=== PATIENT | female | born 1960 | race Caucasian/White ===

== ENCOUNTER 2018-05-23 10:58 | Inpatient (IN) | payer OTHER ==
[2018-05-23] VITALS (36 sets, daily range): BP systolic 102–206; BP diastolic 43–167
[~2018-05-23] VITALS: Ht 157.5 cm; Wt 101.6 kg
--- NOTE | ~2018-05-23 | HC ---
[facility] [place] [address] CONSULTATION Name: JENNIFER SNELL Room #: 238-P [facility] IN M.R.#: [id number] Admission: 05/23/18 Attend Phys: Marlo Reynoso MD Discharge: Date of : 56 Report #: [id number] THIS REPORT FOR: //name// CC: Marlo Reynoso REASON FOR PRESENTATION: Weakness and dizziness. HISTORY OF PRESENT ILLNESS: This is a 57-year-old who is known to have COPD per history. She is also a thyroid patient. She carries a diagnosis of hyperlipidemia and hypertension. She is diabetic, and she is not aware of any previous medical problems when it comes to her kidneys. She is a fibromyalgia patient who has not been feeling well with repeated falls in the last few days. She also had some issues with ambulation. She stated that she had some dizziness, but no syncope. No fever or chills. No upper respiratory tract infection symptoms. No headache. No GI symptoms other than mild nausea. No persistent vomiting, no diarrhea. She tells me that she was prescribed new medications for her migraines, but she is not able to elaborate more on that. On presentation to the Emergency Room, she was found to have an acute kidney injury with a creatinine of 6.4. She was also found to have a sodium of 110. She is anemic with a very low MCV at 60. Initial urine studies done yesterday revealed a urine specific gravity of 1.010, with +1 protein and red blood cells. I am being consulted to manage her acute kidney injury. PAST MEDICAL HISTORY: Numerous and includes the followin. COPD. 2. Hypothyroidism. 3. Diabetes mellitus. 4. Hypertension. 5. Fibromyalgia. 6. Hyperlipidemia. MEDICATIONS: 1. Aspirin. 2. Carvedilol. 3. Albuterol. 4. Lisinopril. 5. Pravastatin. 6. Gabapentin. 7. Victoza. 8. Insulin. 9. Metformin. 10. Lasix. SOCIAL HISTORY: She is a current everyday smoker. No drug or alcohol abuse. FAMILY HISTORY: Significant for hypertension. [facility] [address] [place] [address] CONSULTATION Name: JENNIFER SNELL Kavya Room #: 238-P [facility] IN M.R.#: [id number] Admission: 05/23/18 Attend Phys: Marlo Reynoso MD Discharge: Date of : 56 Report #: [id number] REVIEW OF SYSTEMS: GENERAL: Significant for malaise, weakness, weight gain. PULMONARY: Significant for shortness of breath. CARDIOVASCULAR: No chest pain or palpitation. GASTROINTESTINAL: Significant for nausea. GENITOURINARY: No frequency, no urgency. MUSCULOSKELETAL: Significant for edema. NEUROLOGICAL: Significant for dizziness, headache: PHYSICAL EXAMINATION: GENERAL: She is alert, oriented, in no apparent distress. VITAL SIGNS: Most recent blood pressure values are stable at 111/50. She was never hypotensive. HEAD AND NECK: No jugular venous distention, no bruit, no thyromegaly. CHEST: Decreased air entry bilaterally. CARDIOVASCULAR: Regular, with no rub detected. ABDOMEN: Soft, nontender with no hepatosplenomegaly. LABORATORY DATA: Reviewed. Sodium 112, potassium 5.2, BUN 61, creatinine 6.9. Urine sodium was 124. Unfortunately, there are no osmolarity studies available as of this moment. TSH is within normal. CT head was negative. Chest x-ray with no acute abnormality. ASSESSMENT, IMPRESSION AND PLAN: 1. Acute kidney injury. 2. Hyponatremia. 3. Severe anemia with low MCV. 4. Hypoxemia. 5. Hyperkalemia. 6. Hyperphosphatemia. This is rather very abrupt deterioration in the patient's kidney function of unclear reasons to me, complicated by hyponatremia and hyperkalemia. Potential causes include metformin and Victoza. I will initiate the appropriate workup for her acute kidney injury. Need an investigation for her anemia. Her hyponatremia is likely related to ongoing fluid intake on top of her psych medications. [address] [address] CONSULTATION Name: JENNIFER SNELL Room #: 238-P [facility] IN .R.#: [id number] Admission: 05/23/18 Attend Phys: Marlo Reynoso MD Discharge: Date of : 56 Report #: [id number] As for now, we will place on fluid restriction. I will give an one-time dose of Lasix to try to increase the free water excretion. She is completely asymptomatic today from her hyponatremia. She received 3% yesterday because of her symptoms, and this has increased her sodium from 107-112. Gradual improvement of her sodium. If the serologies are negative, I might proceed with a kidney biopsy to justify her acute kidney injury after ruling out all other possibilities. Malignancy workup. <ELECTRONICALLY SIGNED> By: Emerald Gregorio MD 05/26/18 0838 [id number] Emerald Gregorio MD /nt
--- NOTE | ~2018-05-23 | EKG ---
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: Nany TRAN : 1960 Requested By: Dodie Bradley Order Number: [id number] MD: Raad Lake Measurements Intervals [place] Rate: 62 P: 68 IA: 200 QRS: 17 QRSD: 94 T: 33 QT: 389 QTc: 395 Interpretive Statements Sinus rhythm Low voltage, extremity and precordial leads Compared to ECG 10/29/2016 22:16:10 No significant changes Electronically Signed On 05-24-2018 17:00:29 CDT by Raad Lake [email or web address] <ELECTRONICALLY SIGNED> By: Raad Lake MD, [facility] 05/24/18 1700 1124 1124 Raad Lake MD, [facility] /EPI
--- NOTE | ~2018-05-23 | 2DMMODE ---
[facility] [address] [place] [address] 2 D/M-MODE ECHOCARDIOGRAM Name: JENNIFER SNELL Room #: 238-P [facility] IN .R.#: [id number] Admission: 05/23/18 Attend Phys: Marlo Reynoso, Discharge: Date of : 56 Date of Service: 05/24/18 1256 Report #: [id number] THIS REPORT FOR: //name// APPROVED REPORT Study performed: 05/24/2018 10:58:14 EXAM: Comprehensive 2D, Doppler, and color-flow Echocardiogram Patient Location: ICU Room #: 238 Status: routine BSA: 2.07 HR: 67 bpm BP: 111/50 mmHg Other Information Study Quality: Fair Indications COPD Dyspnea Echo Enhancing Agent Indication: Endocardial border delineation Agent(s) / Amount(s) Used: Optison 3 cc 2D Dimensions LVEF(%): 57.44 (>50%) IVSd: 8.86 (7-11mm) LVOT Diam: 17.94 (18-24mm) LVDd: 51.69 mm PWd: 8.61 (7-11mm) Ascending Ao: 23.23 (22-36mm) LVDs: 35.98 (25-40mm) Aortic Root: 23.30 mm IVC: 24.00 mm Cabrera's LVEF: 57.44 % Aortic Valve AoV Peak Calin.: 1.81 m/s AO Peak Gr.: 13.11 mmHg LVOT Max P.77 mmHg LVOT Max V: 1.39 m/s SAYRA Vmax: 1.94 cm2 Mitral Valve E/A Ratio: 1.3 MV Decel. Time: 249.33 ms MV E Max Calin.: 1.23 m/s [facility] [address] [place] [address] 2 D/M-MODE ECHOCARDIOGRAM Name: JENNIFER SNELL Room #: 238-P [facility] IN ..#: [id number] Admission: 05/23/18 Attend Phys: Marlo Reynoso, Discharge: Date of : 56 Date of Service: 05/24/18 1256 Report #: [id number] MV A Calin.: 0.97 m/s MV PHT: 72.31 ms IVRT: 64.59 ms Pulmonary Valve PV Peak Calin.: 1.30 m/s PV Peak Gr.: 6.77 mmHg Pulmonary Vein P Vein S: 0.58 m/s P Vein A: 0.30 m/s P Vein D: 0.54 m/s P Vein A Dur.: 83.0 msec P Vein S/D Ratio: 1.07 Left Ventricle The left ventricle is normal size. There is normal LV segmental wall motion. There is normal left ventricular wall thickness. The left ventricular systolic function is normal. The left ventricular ejection fraction is within the normal range. LVEF is 55-60%. Grade I - abnormal relaxation pattern. Right Ventricle The right ventricle is normal size. The right ventricular systolic function is normal. Atria Left atrium is dilated. The right atrium size is normal. Aortic Valve The aortic valve is mildly calcified No aortic regurgitation is present. There is no aortic valvular stenosis. Mitral Valve The mitral valve is normal in structure. No mitral regurgitation. No evidence of mitral valve stenosis. Tricuspid Valve The tricuspid valve is normal in structure. There is no tricuspid valve regurgitation noted. Pulmonic Valve The pulmonary valve is normal in structure. There is no pulmonic valvular regurgitation. Great Vessels The aortic root is normal in size. IVC is dilated and collapses <50% with inspiration. [address] [address] 2 D/M-MODE ECHOCARDIOGRAM Name: JENNIFER SNELL Room #: 238-P [facility] IN .R.#: [id number] Admission: 05/23/18 Attend Phys: Marlo Reynoso, Discharge: Date of : 56 Date of Service: 05/24/18 1256 Report #: [id number] Pericardium There is no pericardial effusion. <Conclusion> The left ventricular systolic function is normal. There is normal LV segmental wall motion. LVEF is 55-60%. Mild diastolic dysfunction The aortic valve is mildly calcified. No aortic regurgitation or stenosis The mitral valve is normal in structure. No mitral regurgitation. There is no pericardial effusion. <ELECTRONICALLY SIGNED> By: Raad Lake MD, FACC 05/24/18 1256 1256 1256 Raad Lake MD, [facility] /INF
--- NOTE | ~2018-05-23 | HC ---
[facility] [place] [address] [place] [address] CONSULTATION Name: JENNIFER SNELL Room #: 360-P [facility] IN M.R.#: [id number] Admission: 05/23/18 Attend Phys: Marlo Reynoso MD Discharge: 05/28/18 Date of : 56 Report #: [id number] THIS REPORT FOR: //name// CC: Marlo Reynoso DATE OF SERVICE: 05/27/2018 WOUND CARE CONSULTATION NOTE REASON FOR CONSULTATION: Abrasions of buttock and groin rash and the patient admitted for shortness of breath. HISTORY OF PRESENT ILLNESS: The patient is an obese diabetic 57-year-old woman with a history of COPD, admitted to the Emergency Room with dizziness, lightheadedness, weakness and shortness of breath. Wound care team is consulted where it was noted that she had some abrasion of her buttock and the patient does complain of a fungal dermatosis of her lower sacral and perianal area. PAST MEDICAL HISTORY: Acute respiratory failure with hypoxia, admitted to ER, COPD, dyspnea, morbid obesity, urinary tract infection. History of Crohn's disease and fibromyalgia. ALLERGIES: KEFLEX AND PENICILLINS. MEDICATIONS: Aspirin, carvedilol, Levothroid, clonazepam, Symbicort, albuterol, Zestril, multiple vitamins, Protonix, [place], Zyprexa, Neurontin, Victoza, Lantus insulin, Glucophage, Novolin insulin, furosemide and Spiriva. REVIEW OF SYSTEMS: The patient is short of breath. She complains of itch and rash in her perirectal area. PHYSICAL EXAMINATION: GENERAL: Shows a chronically ill-appearing, obese 57-year-old woman who is not short of breath. She is alert, conversant, and pleasant. HEENT: Mucous membranes are moist. NECK: Supple. LUNGS: Respirations are unlabored. HEART: Shows regular rate and rhythm. ABDOMEN: Obese and soft. EXTREMITIES: Show no wounds. Examination of the patient's back shows some superficial abrasions of her right buttock. There is a fungal dermatosis noted in her intergluteal cleft. IMPRESSION: 1. Morbid obesity. 2. Chronic obstructive pulmonary disease with shortness of breath, improved. [facility] [address] [place] [address] CONSULTATION Name: JENNIFER SNELL Kavya Room #: 360-P [facility] IN M.R.#: [id number] Admission: 05/23/18 Attend Phys: Marlo Reynoso MD Discharge: 05/28/18 Date of : 56 Report #: [id number] 3. Abrasions of right buttock, superficial. 4. 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 5. Fungal dermatosis of intergluteal cleft. PLAN: We will order an antifungal barrier cream to the intergluteal cleft area and apply this as well to the area of the abrasions of the right buttock as a barrier cream. Diabetes management. Wound care team will follow. <ELECTRONICALLY SIGNED> By: Lakhwinder Russell MD 05/30/18 1000 [id number] 1926 Lakhwinder Russell MD /nt
[~2018-05-23 10:58] MED LIST: ADULT LOW DOSE81 MG PO; ALBUTEROL2.5 MG/0.1 INH; ASACOL HD800 MG PO; BUPROPION XL150 MG PO; CARVEDILOL12.5 MG PO; CIPRO250 MG PO; CLONAZEPAM 1 MG1 M1 PO; CYMBALTA30 MG PO; ETODOLAC 400 M400 M1 PO; FLEXERIL PO; FLUOXETINE HCL20 M1 PO; FUROSEMIDE 40 M40 M1 PO; HUMALOG100 UNIT/1; HUMALOG100 UNIT/1 SQ; HUMULIN 50100 UNIT/1 SQ; HYDROCODON-ACE1 EAC7 PO; LANTUS SQ; LEVOTHROID75 MCG PO; LISINOPRIL10 MG PO; MULTIVITAMINS PO; NOVOLIN N100 UNIT/1 SUBQ; NOVOLIN R100 UNIT/1 SUBQ; OMEPRAZOLE20 M2 PO; ONDANSETRON HCL4 M2 PO; PHENERGAN 25 MG25 M1 PO; PRAVASTATIN SOD20 MG PO; PROTONIX 20 MG20 M1 PO; PROVENTIL; SLOW FE 160MG160 MG; SPIRIVA INH; SYMBICORT160 MCG/4. INH; ULTRAM 50MG TAB50 MG PO; VITAMIN D1000 UNI1 PO
[2018-05-23 11:42] LABS: HEMATOCRIT 28.6 % (37.0-47.0); HEMOGLOBIN 9.7 gm/dL (12.0-15.0); MCH 20.4 pg (26.0-34.0); MCHC 33.9 g/dL (28.0-37.0); MCV 60.1 fL (80.0-100.0); PLATELET COUNT 279 thou/uL (150-400); RBC 4.76 mil/uL (4.20-5.00); WBC 10.2 thou/uL (4.0-11.0)
[2018-05-23] MEDS ORDERED: NORCO 10-325 T1 EACH PO (11:48)
[2018-05-23] MEDS ORDERED: ZYPREXA 5 MG TAB5 M1 PO (11:50)
[2018-05-23] MEDS ORDERED: NEURONTIN 300300 M1 PO (11:50)
[2018-05-23] MEDS ORDERED: VICTOZA0.6 MG/0.1 SUBQ (11:52)
[2018-05-23 11:53] LABS: ANION GAP 10 mmol/L (7-16); BUN 58 mg/dL (7-18); CALCIUM 8.7 mg/dL (8.5-10.1); CHLORIDE 72 mmol/L (98-107); CO2 28 mmol/L (21-32); CREATININE 6.4 mg/dL (0.6-1.0); GLUCOSE 78 mg/dL (74-106); POTASSIUM 4.9 mmol/L (3.5-5.1)
[2018-05-23] MEDS ORDERED: LANTUS100 UNIT/M SUBQ (11:53)
[2018-05-23] MEDS ORDERED: METFORMIN HCL500 MG PO (11:54)
[2018-05-23] MEDS ORDERED: NOVOLIN R100 UNIT/1 SUBQ (11:56)
[2018-05-23 11:58] LABS: HCO3 27.7 mmol/L (22.0-26.0); PCO2 48.5 mmHg (35.0-45.0); PO2 53.2 mmHg (80.0-100.0); pH 7.374 (7.360-7.450); sO2 86.5 % (92.0-98.0)
[2018-05-23 12:02] LABS: ALBUMIN 3.3 g/dL (3.4-5.0); MAGNESIUM 1.2 mg/dL (1.8-2.4); SGOT 105 U/L (15-37); SGPT 39 U/L (30-65); TOTAL BILIRUBIN 1.1 mg/dL (<0.1-1.0); TOTAL PROTEIN 6.8 g/dL (6.4-8.2); TROPONIN-I <0.06 ng/mL (<0.06)
[2018-05-23 12:04] LABS: SODIUM 110 mmol/L (136-145)
[2018-05-23 12:19] LABS: URINE BILIRUBIN NEGATIVE (Negative); URINE BLOOD 2+ (Negative); URINE CLARITY SL CLOUDY; URINE COLOR YELLOW; URINE GLUCOSE-RANDOM* NEGATIVE (Negative); URINE KETONES NEGATIVE (Negative); URINE NITRITE-REFLEX NEGATIVE (Negative); URINE PROTEIN (DIPSTICK) 1+ (Negative); URINE UROBILINOGEN 0.2 E.U./dl (0.2-1.0)
[2018-05-23 12:21] LABS: URINE LEUKOCYTES-REFLEX 3+ (Negative)
[2018-05-23 12:36] LABS: CASTS None Seen /LPF (None Seen); CRYSTALS None Seen /LPF (None Seen); SQUAMOUS 4-10 Moderate /LPF (0-3); URINE WBC-REFLEX >25 Many /HPF (0-5)
[2018-05-23 12:37] LABS: BACTERIA-REFLEX >30 Many /HPF (None Seen); URINE RBC 0-2 Rare /HPF (0-2)
[2018-05-23 12:43] LABS: ABSOLUTE NEUTROPHILS 8.5 thou/uL (1.4-8.2); ANISOCYTOSIS 2+; HYPOCHROMASIA 1+; MICROCYTES 2+
[2018-05-23 12:44] LABS: POIKILOCYTOSIS SLIGHT; POLYCHROMASIA OCCASIONAL
[2018-05-24] VITALS (46 sets, daily range): BP systolic 62–137; BP diastolic 40–102
[2018-05-24 04:21] LABS: ALBUMIN 2.7 g/dL (3.4-5.0); CALCIUM 8.1 mg/dL (8.5-10.1); CREATININE 6.9 mg/dL (0.6-1.0); PHOSPHORUS 6.4 mg/dL (2.5-4.9); POTASSIUM 5.3 mmol/L (3.5-5.1)
[2018-05-24 10:32] LABS: % SATURATION 5 % (20-39); IRON 18 ug/dL (50-170); TIBC 392 ug/dL (250-450)
[2018-05-24 14:09] LABS: COMPLEMENT-C3 117 mg/dL (82-167); COMPLEMENT-C4 15 mg/dL (14-44); IgA 160 mg/dL (87-352); IgG 381 mg/dL (700-1600); IgM 80 mg/dL (26-217)
[2018-05-25] VITALS (22 sets, daily range): BP systolic 78–113; BP diastolic 32–70
[2018-05-25 01:08] LABS: HEPATITIS B SURFACE AG Negative (Negative)
[2018-05-25 07:53] LABS: ALBUMIN 2.7 g/dL (3.4-5.0); CALCIUM 7.9 mg/dL (8.5-10.1); CREATININE 6.4 mg/dL (0.6-1.0); POTASSIUM 4.9 mmol/L (3.5-5.1); TOTAL BILIRUBIN 0.5 mg/dL (<0.1-1.0); TOTAL PROTEIN 5.6 g/dL (6.4-8.2)
[2018-05-25 16:34] LABS: ALBUMIN 2.4 g/dL (3.4-5.0); CALCIUM 6.8 mg/dL (8.5-10.1); CREATININE 5.5 mg/dL (0.6-1.0); POTASSIUM 4.6 mmol/L (3.5-5.1)
[2018-05-25 17:10] LABS: KAPPA FREE LIGHT CHAINS 55.1 mg/L (3.3-19.4); LAMBDA FREE LIGHT CHAINS 19.7 mg/L (5.7-26.3)
[2018-05-26] VITALS (22 sets, daily range): BP systolic 88–115; BP diastolic 35–70
[2018-05-26 03:32] LABS: ALBUMIN 2.6 g/dL (3.4-5.0); CALCIUM 7.8 mg/dL (8.5-10.1); PHOSPHORUS 4.9 mg/dL (2.5-4.9); POTASSIUM 4.7 mmol/L (3.5-5.1)
[2018-05-27 04:20] VITALS: BP 107/62
[2018-05-27 06:27] LABS: CREATININE 2.6 mg/dL (0.6-1.0)
[2018-05-27 06:36] LABS: CHLORIDE 92 mmol/L (98-107); POTASSIUM 4.1 mmol/L (3.5-5.1); SODIUM 129 mmol/L (136-145)
[2018-05-27 06:39] LABS: ANION GAP 7 mmol/L (7-16); CO2 30 mmol/L (21-32)
[2018-05-27 06:40] LABS: BUN 59 mg/dL (7-18); CALCIUM 8.6 mg/dL (8.5-10.1); GLUCOSE 67 mg/dL (74-106); PHOSPHORUS 3.3 mg/dL (2.5-4.9)
[2018-05-27 07:27] VITALS: BP 109/50
[2018-05-27 09:07] LABS: GLOMERULR BASEM MEMBRN AB 3 units (0-20)
[2018-05-27 11:21] VITALS: BP 125/68
[2018-05-27 12:08] LABS: ANA INTERPRETATION Negative (Negative)
[2018-05-27 15:40] VITALS: BP 113/63
[2018-05-27 19:43] VITALS: BP 103/47
[2018-05-28 03:20] VITALS: BP 105/56
[2018-05-28 06:24] LABS: HEMATOCRIT 27.3 % (37.0-47.0); HEMOGLOBIN 8.6 gm/dL (12.0-15.0); MCH 20.2 pg (26.0-34.0); MCHC 31.5 g/dL (28.0-37.0); MCV 64.2 fL (80.0-100.0); RBC 4.26 mil/uL (4.20-5.00); RDW 23.2 % (10.5-14.5); WBC 5.8 thou/uL (4.0-11.0)
[2018-05-28 06:30] LABS: ALBUMIN 3.1 g/dL (3.4-5.0); CALCIUM 9.1 mg/dL (8.5-10.1); POTASSIUM 4.4 mmol/L (3.5-5.1)
[2018-05-28 06:31] LABS: CREATININE 1.2 mg/dL (0.6-1.0)
[2018-05-28 07:10] LABS: GLOBULIN TOTAL 2.5 g/dL (2.2-3.9); M-SPIKE Not Observed g/dL (Not Observed)
[2018-05-28] MEDS ORDERED: LEVAQUIN 250 M250 MG PO (07:29)
[2018-05-28 07:58] VITALS: BP 118/45
[2018-05-28 11:42] VITALS: BP 118/45
[2018-05-28 12:22] VITALS: BP 116/54
[2018-05-28 14:11] LABS: CORTISOL 60 MIN 36.5 ug/dL (Not Estab.); CORTISOL BASELINE 15.9 ug/dL (())
== END 2018-05-28 16:16 | DRG 314 ==
LOC: ER 10:58 → EROBS 12:23 → ICU 12:23 → 3W 05-26 17:03
PROVIDERS: Family Medicine; Hospitalist; Physician Assistant
DX: I95.9 Hypotension, unspecified (principal); G93.40 Encephalopathy, unspecified; J96.01 Acute respiratory failure with hypoxia; N17.9 Acute kidney failure, unspecified; K50.90 Crohn's disease, unspecified, without complications; E87.1 Hypo-osmolality and hyponatremia; N39.0 Urinary tract infection, site not specified; E44.1 Mild protein-calorie malnutrition; Z68.41 Body mass index [BMI] 40.0-44.9, adult; G43.909 Migraine, unspecified, not intractable, without status migrainosus; M19.90 Unspecified osteoarthritis, unspecified site; I10 Essential (primary) hypertension; M79.7 Fibromyalgia; F32.9 Major depressive disorder, single episode, unspecified; F17.210 Nicotine dependence, cigarettes, uncomplicated; G47.33 Obstructive sleep apnea (adult) (pediatric); R26.9 Unspecified abnormalities of gait and mobility; E78.5 Hyperlipidemia, unspecified; F41.9 Anxiety disorder, unspecified; E03.9 Hypothyroidism, unspecified; E87.5 Hyperkalemia; E83.39 Other disorders of phosphorus metabolism; S30.810A Abrasion of lower back and pelvis, initial encounter; W19.XXXA Unspecified fall, initial encounter; L98.8 Other specified disorders of the skin and subcutaneous tissue; E66.01 Morbid (severe) obesity due to excess calories; E11.622 Type 2 diabetes mellitus with other skin ulcer; L98.499 Non-pressure chronic ulcer of skin of other sites with unspecified severity; D50.9 Iron deficiency anemia, unspecified; B00.9 Herpesviral infection, unspecified; Y92.098 Other place in other non-institutional residence as the place of occurrence of the external cause; Z88.0 Allergy status to penicillin; Z88.8 Allergy status to other drugs, medicaments and biological substances; Z91.040 Latex allergy status; Z79.899 Other long term (current) drug therapy; Z82.49 Family history of ischemic heart disease and other diseases of the circulatory system; Y93.89 Activity, other specified; Y99.8 Other external cause status; Z79.4 Long term (current) use of insulin; Z79.82 Long term (current) use of aspirin
CPT/HCPCS: 10078; 10779; 27000

== ENCOUNTER 2018-05-28 09:51 | Inpatient (IN) | payer OTHER ==
[~2018-05-28] VITALS: Ht 157.5 cm; Wt 107.3 kg
--- NOTE | ~2018-05-28 | HC ---
[facility] [place] [address] CONSULTATION Name: JENNIFER SNELL Room #: 512-P [facility] IN M.R.#: [id number] Admission: 05/28/18 Attend Phys: Kristopher Brown MD Discharge: Date of : 56 Report #: [id number] THIS REPORT FOR: //name// CC: Kristopher Reynoso DATE OF SERVICE: 05/30/2018 NEUROBEHAVIORAL STATUS EXAM ATTENDING PHYSICIAN: Kristopher Brown MD. SET MAKING MACHINE OPERATOR: Marlo Hyde, PhD. CLINICAL PRESENTATION: The patient is a 57-year-old female admitted to the rehabilitation unit at [facility] for comprehensive inpatient rehabilitation program to improve her functional mobility, activities of daily living and self-care secondary to deficits from encephalopathy. She was initially noted to have severe anemia and a significant mental status changes. Her medical history includes COPD, hypothyroidism, diabetes, hypertension, fibromyalgia, and hyperlipidemia. Diagnostic impressions for admission to rehab include metabolic encephalopathy with severe acute renal failure and hyponatremia, gait instability, severe acute renal failure now resolving, hyponatremia, resolving, recurrent falls at home, Enterobacter urinary tract infection, type 2 diabetes, COPD, depression and psychological issues and hypotension. A complete description of her medical condition and history can be found in her medical record. Neuropsychological consultation was requested to provide assistance in the assessment of cognitive and emotional status and to provide recommendations and services. Prior to this most recent admission, the patient was living independently at home with her . She had been intermittently taking care of grandchildren. She states having been a high school graduate with 2 years of community college. She discontinued working in order to stay home and care for her grandchildren about 18-19 years ago. She has three children and 11 grandchildren. TECHNIQUES UTILIZED: Clinical interview, review of medical records, staff consultation and behavioral observation, mini mental status exam 2 standard version, verbal fluency assessment (letter and category), and family interview -- . EXAMINATION FINDINGS: The patient was alert and cooperative with the assessment. She accurately described events surrounding her admission. There is no evidence of aphasia. Her thoughts are logical and goal oriented. There [facility] [address] [place] [address] CONSULTATION Name: JENNIFER SNELL Kavya Room #: 512-P [facility] IN M.R.#: [id number] Admission: 05/28/18 Attend Phys: Kristopher Brown MD Discharge: Date of : 56 Report #: [id number] is no evidence of thought disorder. She does not report auditory or visual hallucinations. She indicates there is no suicidal ideation. She reports frustration with aspects of her hospitalization as wanting to return home as soon as possible. She is uncomfortable with the food. The patient reports that she could go 3-4 days without sleep. There is longstanding history of treatment for depression and anxiety is noted. She does not report difficulty with memory or word finding. Her performance on the MMSE 2 brief version is within normal limits with a raw score of 14 of 16 and a T score of 41. She was 3 of 3 for initial registration, 5 of 5 for orientation to time and place and 1 of 3 for immediate recall of 3 items after a brief time delay and distraction. Her performance deteriorated on the MMSE 2 standard version to a raw score 23 of 30, which is a T score of 31 and percentile rank of 3. She was 1 of 5 for serial sevens, 2 of 2 for naming, 1 of 1 for repetition, 3 of 3 for immediate recall or for comprehension, 1 of 1 for being able to read and follow a single command and writing a sentence. The patient was unable to accurately copy a simple geometric design. Her clock drawing was generally within normal limits. Letter fluency was extremely low with a raw score of 12, T score of 26 and percentile rank of 1. Category fluency was less than 1% with a raw score of 21 and a T score of 19. Overall, total fluency was a total score of 19 and percentile rank of less than 1. The patient is performing with deficits in thought organization and higher level executive functioning in the deal of planning and problem solving. Her level of cognition is much improved and the delirium appears to have resolved. DIAGNOSTIC IMPRESSION: Neurocognitive disorder, unspecified -- without behavior disorder, extent to be determined, likely in the moderate range. RECOMMENDATIONS: Continue speech therapy to assist with the development of compensatory strategies for attention/concentration and verbal fluency. Increased assistance will be necessary for the management of medication, finances and nutrition. The patient is wanting to be discharged as soon as possible. Her indicates a need to be informed at least several days in advance prior to discharge because of his work schedule and need to provide adequate supervision and structure upon her return home. She does report previous treatment for depression and anxiety. She may benefit from evaluation of medications following discharge to clarify current medication use and what would be potential benefit in regard to change. [facility] [address] [place] [address] CONSULTATION Name: JENNIFER SNELL Room #: 512-P [facility] IN M.R.#: [id number] Admission: 05/28/18 Attend Phys: Kristopher Brown MD Discharge: Date of : 56 Report #: [id number] Thank you very much for allowing me to provide the consultation on this patient. By: [id number] Marlo Hyde, PhD /nt
--- NOTE | ~2018-05-28 | H ---
[facility] [place] [address] HISTORY AND PHYSICAL Name: JENNIFER SNELL Room #: 514-P [facility] IN M.R.#: [id number] Admission: 05/28/18 Attend Phys: Kristopher Brown MD Discharge: 06/02/18 Date of : 56 Report #: [id number] THIS REPORT FOR: //name// CC: Kristopher Reynoso DATE OF SERVICE: 05/28/2018 HISTORY OF PRESENT ILLNESS: The patient is admitted for acute in-hospital inpatient rehabilitation. She originally was admitted to [facility] with dizziness, lightheadedness, falls and weakness. She was noted to be in severe acute renal failure with initial creatinine of 6.4 and had severe hyponatremia with a sodium of 110. She was hypotensive. She had a urinary tract infection. Nephrology was closely involved who thought her low sodium was secondary to her renal failure along with her psych medications along with increased oral water intake. She had an elevated kappa free light chain. She was also noted to have severe anemia and was given iron infusions. She was noted to have mental status changes with a metabolic encephalopathy from the severe acute renal failure and hyponatremia and electrolyte abnormalities. She has had a significant decline in her functional independence and has now been admitted for acute in-hospital inpatient rehabilitation. Past medical history, habits, and social history: Please see Shirley Taylor's nurse practitioner dictation. REVIEW OF SYSTEMS: No specific complaints of chest pain or shortness of breath, abdominal discomfort. PHYSICAL EXAMINATION: Obese, sleepy, pleasant 57-year-old white female was seen earlier, she is in no distress. There was a delayed response to her verbal responses with requiring longer processing time. HEENT: Otherwise appeared to be benign. CHEST: Some decreased at the lung base. CARDIOVASCULAR: Regular rate and rhythm. ABDOMEN: Bowel sounds positive. Morbidly obese. GENITOURINARY AND RECTAL: She has the indwelling Muro catheter. EXTREMITIES: Functional range of motion. Strength is at least grade 3+ to 4-/5. She has been needing contact assistance for short distance ambulation. Noted to have impaired insight. ASSESSMENT AND PLAN: 1. Metabolic encephalopathy from severe acute renal failure and hyponatremia and metabolic abnormalities. 2. Gait instability. 3. Severe acute renal failure, now resolving. 4. Hyponatremia, resolving. [address] [address] HISTORY AND PHYSICAL Name: JENNIFER SNELL Kavya Room #: 514-P [facility] IN M.R.#: [id number] Admission: 05/28/18 Attend Phys: Kristopher Brown MD Discharge: 06/02/18 Date of : 56 Report #: [id number] 5. Recurrent falls at home. 6. Enterobacter urinary tract infection. 7. Diabetes mellitus. 8. Morbid obesity. 9. Chronic obstructive pulmonary disease. 10. Depression with psych issues. 11. Hypertension. PLAN: The patient is admitted for acute in-hospital inpatient rehabilitation. From a postadmission physician evaluation perspective, there are no relevant changes since the preadmission screening. Please see the above review of prior and current medical and functional conditions and comorbidities. The patient previously had been ambulatory utilizing a 4-wheeled walker, living with her . As far as risk of complication, she has multiple medical comorbidities. Initial plan of care involves the interdisciplinary acute inpatient rehabilitation program with the goal maximizing her functional independence, so she can hopefully return back to her prior living situation. Measurable functional goals would be for her to improve her mobility and strength and independence as well as overall cognition. Prognosis is reasonably good with estimated length of stay probably at least 7-10 days or up 14 days depending upon what she needs. Potential barriers would include her multiple medical comorbidities and decreased functional status. The patient meets diagnostic criteria for an acute in-hospital inpatient rehabilitation stay. She does meet the medical necessity criteria and we will have the sales consultant physicians continue to follow. She has the tolerance for therapies and has appropriate discharge goals back to the home setting. <ELECTRONICALLY SIGNED> By: Kristopher Brown MD 06/02/18 1736 0858 1600 Kristopher Brown MD /[facility]
--- NOTE | ~2018-05-28 | H ---
[facility] [place] [address] HISTORY AND PHYSICAL Name: JENNIFER SNELL Room #: PRE IN ..#: [id number] Admission: Attend Phys: Kristopher Brown MD Discharge: Date of : 56 Report #: [id number] THIS REPORT FOR: //name// CC: Kristopher Reynoso MD DATE OF SERVICE: 05/28/2018 HISTORY OF PRESENT ILLNESS: This is a 57-year-old female who presented to the Emergency Department with complaints of dizziness, lightheadedness, falls and weakness. She was found to be in severe acute renal failure with initial creatinine of 6.4 and significant hyponatremia with a sodium of 110 along with hypotension and UTI. She has been treated with antibiotic. Her medications of metformin, Victoza, and lisinopril were all placed on hold. She was seen in consultation by Nephrology, Dr. Gregorio who felt her low sodium was secondary to the renal failure along with her psych medications along with increased oral water intake by the patient. When I was working up her cause of such severe acute renal failure, she did have an elevated kappa-free light chain. Her renal ultrasound shows normal-appearing kidneys without hydronephrosis. She was also noted to have severe anemia and has been given iron infusions. She had significant functional mobility decline along with some altered mental status including delayed verbal and motor responses and decrease of some higher level cognitive functioning. She is now being admitted to acute inpatient rehab for further physical, occupational and speech therapies. PAST MEDICAL HISTORY: COPD, hypothyroidism, diabetes, hypertension, fibromyalgia, hyperlipidemia. HABITS: She smokes cigarettes 1 pack per day for 35 years. No illicit drug use. Denies alcohol use. SOCIAL HISTORY: She lives in a single story home with her . There is one entry stair, 0 stairs once inside. For the past 2 months prior to hospitalization, she has been requiring a 4-wheeled walker. She reports frequent falls at home, which prompted the use of the 4-wheeled walker. She reports falls related to weakness in her legs. REVIEW OF SYSTEMS: The patient reports some numbness, tingling in her lower extremities. Denies acute back pain. She is short of air with activity, no significant cough. Denies chest pain. No constipation or nausea. Generalized fatigue. PHYSICAL EXAMINATION: VITAL SIGNS: BP 118/45, pulse 64, temperature 98. She is 100% oxygen on room [address] [address] HISTORY AND PHYSICAL Name: JENNIFER SNELL Room #: PRE IN [facility].#: [id number] Admission: Attend Phys: Kristopher Brown MD Discharge: Date of : 56 Report #: [id number] air at rest, respirations 12. GENERAL: She is awake, alert. She does answer orientation questions appropriately. She is not the best historian. She has very delayed verbal responses and a flat affect. She requires longer processing time. HEENT: Normocephalic. EOMs intact. CHEST: Diminished lung bases. No wheeze or crackle. HEART: S1, S2. ABDOMEN: Bowel sounds are positive. She is soft, nontender. Morbid obesity. GENITOURINARY: She has a Muro catheter to dependent drainage with yellow urine output. EXTREMITIES: Functional range of motion in bilateral upper and lower extremities. No clonus. She is able to lift all extremities to antigravity. No lower extremity edema. No tenderness to palpation. Negative Homans sign. Ambulating with contact guard assist 40 feet with a front-wheeled walker. Sit to stand is contact guard assist, delayed motor initiation with delayed verbal response, slow reciprocal gait with distance limited by shortness of air and fatigue, requires 2 liters of O2 with mobility. NEURO: She scored 25/30 on the MoCA. She does have mild cognitive and memory deficits, cognitive linguistic skills, impaired insight, deficits with functional working memory. LABORATORY DATA: On 05/28/2018, sodium 133, potassium 4.4, BUN 38, creatinine 1.2, glucose 107, calcium 9.1, albumin 3.1. WBC is 5.8, hemoglobin 8.6, hematocrit 27.3, platelets 324, MCV 64. Urine culture collected on 05/23/2018 grew Enterobacter. ASSESSMENT AND PLAN: 1. Metabolic encephalopathy from severe acute renal failure and hyponatremia. 2. Gait instability. 3. Severe acute renal failure, now resolving. 4. Hyponatremia, resolving. 5. Recurrent falls at home. 6. Enterobacter urinary tract infection. 7. Type 2 diabetes. 8. Chronic obstructive pulmonary disease. 9. Depression with psych issues. 10. Hypotension. PLAN: The patient has been admitted to acute inpatient rehab for physical, occupational and speech therapy evaluations. Her primary doctor, Dr. Reynoso will continue to follow for acute medical issues. She will also have a neuropsychology testing to better assess her cognitive delays. She will have SCDs for DVT prophylaxis. She does have a fungal wound to her right buttock for which wound care and wound care nurse will continue to follow. She will have lab work repeated in the morning. She will remain on a renal diet with fluid [address] [address] HISTORY AND PHYSICAL Name: JENNIFER SNELL Kavya Room #: PRE IN TameraRaffi#: [id number] Admission: Attend Phys: Kristopher Brown MD Discharge: Date of : 56 Report #: [id number] restriction and carbohydrates control. Her Muro catheter is continued for the time being to monitor accurate I's and O's. <ELECTRONICALLY SIGNED> By: CINDY Snider 05/28/18 1514 1043 [id number] CINDY Snider /yoan
--- NOTE | ~2018-05-28 | PLAN ---
[facility] [place] [address] REHAB UNIT PLAN OF CARE Name: JENNIFER SNELL Room #: 514-P DIS IN M.R.#: [id number] Admission: 05/28/18 Attend Phys: Kristopher Brown MD Discharge: 06/02/18 Date of : 56 Report #: [id number] THIS REPORT FOR: //name// CC: Kristopher Reynoso DATE OF SERVICE: 05/29/2018 OVERALL PLAN OF CARE: 1. Estimated length of stay is probably 7-10 days, possibly up to 10-14 days if needed. 2. Medical prognosis is reasonably good. 3. Anticipated interventions includes the interdisciplinary acute inpatient rehabilitation program. 4. Anticipated functional outcomes would be for the patient to become modified independent with transfers, mobility and ADLs so she can return back to the home setting. 5. Discharge destination would be back home with her . The goal is to improve her mobility and ADL independence as well as cognition. 6. Expected therapy by discipline includes PT, OT and speech 1 hour per day each 5 days a week throughout the duration of the acute inpatient rehabilitation stay. <ELECTRONICALLY SIGNED> By: Kristopher Brown MD 06/02/18 1736 0900 [id number] Kristopher Brown MD /PMT
[~2018-05-28 09:51] MED LIST changes: +LANTUS100 UNIT/M SUBQ; +LEVAQUIN 250 M250 MG PO; +METFORMIN HCL500 MG PO; +NEURONTIN 300300 M1 PO; +NORCO 10-325 T1 EACH PO; +VICTOZA0.6 MG/0.1 SUBQ; +ZYPREXA 5 MG TAB5 M1 PO
[2018-05-28 16:34] VITALS: BP 133/57
[2018-05-28 20:11] VITALS: BP 125/55
[2018-05-29 03:51] LABS: HEMATOCRIT 24.6 % (37.0-47.0); HEMOGLOBIN 7.9 gm/dL (12.0-15.0); MCH 20.4 pg (26.0-34.0); MCHC 32.2 g/dL (28.0-37.0); MCV 63.2 fL (80.0-100.0); RBC 3.89 mil/uL (4.20-5.00); RDW 23.2 % (10.5-14.5)
[2018-05-29 04:01] LABS: CALCIUM 8.8 mg/dL (8.5-10.1); CREATININE 0.9 mg/dL (0.6-1.0); POTASSIUM 4.3 mmol/L (3.5-5.1)
[2018-05-29 08:06] VITALS: BP 110/47
[2018-05-29 19:50] VITALS: BP 128/43
[2018-05-30 07:25] VITALS: BP 122/44
[2018-05-30 20:23] VITALS: BP 128/57
[2018-05-31 07:15] VITALS: BP 133/61
[2018-05-31 19:42] VITALS: BP 111/50
[2018-06-01 05:39] LABS: CALCIUM 8.1 mg/dL (8.5-10.1); CREATININE 0.8 mg/dL (0.6-1.0); POTASSIUM 3.7 mmol/L (3.5-5.1)
[2018-06-01 06:00] LABS: HEMATOCRIT 24.1 % (37.0-47.0); HEMOGLOBIN 7.9 gm/dL (12.0-15.0)
[2018-06-01 07:35] VITALS: BP 110/48
[2018-06-01 17:26] VITALS: BP 109/34
[2018-06-01 19:33] VITALS: BP 133/68
[2018-06-02 07:30] VITALS: BP 124/55
[2018-06-02 09:06] VITALS: BP 109/34
== END 2018-06-02 10:41 | disposition home health service (06) | DRG 91 ==
LOC: ENTRNSPT 06-02 10:25 → EDTRNSPTSTS 06-02 10:27
PROVIDERS: Nurse Practitioner Family
DX: R26.81 Unsteadiness on feet (principal); G93.41 Metabolic encephalopathy; J96.01 Acute respiratory failure with hypoxia; N17.9 Acute kidney failure, unspecified; E87.1 Hypo-osmolality and hyponatremia; N39.0 Urinary tract infection, site not specified; Z68.41 Body mass index [BMI] 40.0-44.9, adult; R53.81 Other malaise; I95.9 Hypotension, unspecified; D64.9 Anemia, unspecified; J44.9 Chronic obstructive pulmonary disease, unspecified; E03.9 Hypothyroidism, unspecified; E11.9 Type 2 diabetes mellitus without complications; I10 Essential (primary) hypertension; E78.5 Hyperlipidemia, unspecified; M79.7 Fibromyalgia; F17.210 Nicotine dependence, cigarettes, uncomplicated; R26.9 Unspecified abnormalities of gait and mobility; F32.9 Major depressive disorder, single episode, unspecified; R41.9 Unspecified symptoms and signs involving cognitive functions and awareness; E66.01 Morbid (severe) obesity due to excess calories; G47.33 Obstructive sleep apnea (adult) (pediatric); B96.89 Other specified bacterial agents as the cause of diseases classified elsewhere; Z16.19 Resistance to other specified beta lactam antibiotics; Z16.11 Resistance to penicillins; R29.6 Repeated falls
CPT/HCPCS: 10112

== ENCOUNTER → 2018-11-12 | Outpatient (CLI) | payer OTHER ==
--- NOTE | ~2018-11-12 | 2DMMODE ---
[facility] [address] [employer] [address] 2 D/M-MODE ECHOCARDIOGRAM Name: JENNIFER SNELL Room #: REG [facility]#: [id number] Admission: 11/12/18 Attend Phys: Maurice Blank, Discharge: Date of : 56 Date of Service: 11/12/18 1635 Report #: [id number] THIS REPORT FOR: //name// APPROVED REPORT Study performed: 11/12/2018 09:13:06 EXAM: Comprehensive 2D, Doppler, and color-flow Echocardiogram Patient Location: Out-Patient Room #: Echo lab 2 Status: routine BSA: 2.07 HR: 79 bpm BP: 118/64 mmHg Rhythm: NSR Other Information Study Quality: Adequate Indications Diabetes CAD Hypertension/HDD HLP 2D Dimensions RVDd: 40.76 mm IVSd: 9.57 (7-11mm) LVOT Diam: 19.22 (18-24mm) LVDd: 45.51 mm PWd: 10.13 (7-11mm) Ascending Ao: 25.23 (22-36mm) LVDs: 30.67 (25-40mm) Aortic Root: 27.30 mm IVC: 17.00 mm Volumes Left Atrial Volume (Systole) Single Plane 4CH: 56.22 mL Single Plane 2CH: 43.58 mL LA ESV Index: 26.00 mL/m2 Aortic Valve AoV Peak Calin.: 1.60 m/s AO Peak Gr.: 10.28 mmHg LVOT Max P.39 mmHg LVOT Max V: 1.26 m/s SAYRA Vmax: 2.29 cm2 [facility] [address] [place] [address] 2 D/M-MODE ECHOCARDIOGRAM Name: JENNIFER SNELL ANGLE [id number] Admission: 11/12/18 Attend Phys: Maurice Blank, Discharge: Date of : 56 Date of Service: 11/12/18 1635 Report #: [id number] Mitral Valve E/A Ratio: 1.1 MV Decel. Time: 198.55 ms MV E Max Calin.: 1.16 m/s MV A Calin.: 1.06 m/s MV PHT: 57.58 ms IVRT: 64.59 ms Pulmonary Valve PV Peak Calin.: 1.11 m/s PV Peak Gr.: 4.95 mmHg Pulmonary Vein P Vein S: 0.44 m/s P Vein A: 0.23 m/s P Vein D: 0.44 m/s P Vein A Dur.: 96.9 msec P Vein S/D Ratio: 1.00 Tricuspid Valve TR Peak Calin.: 2.99 m/s TR Peak Gr.: 35.86 mmHg PA Pressure: 41.00 mmHg Left Ventricle The left ventricle is normal size. There is normal LV segmental wall motion. There is normal left ventricular wall thickness. The left ventricular systolic function is normal. The left ventricular ejection fraction is within the normal range. LVEF is 55-60%. The left ventricular diastolic function is normal. Right Ventricle The right ventricle is normal size. The right ventricular systolic function is normal. Atria The left atrium size is normal. The right atrium size is normal. Aortic Valve The aortic valve is normal in structure. No aortic regurgitation is present. There is no aortic valvular stenosis. Mitral Valve The mitral valve is normal in structure. There is no mitral valve regurgitation noted. No evidence of mitral valve stenosis. Tricuspid Valve The tricuspid valve is normal in structure. There is trace tricuspid [facility] [address] [place] [address] 2 D/M-MODE ECHOCARDIOGRAM Name: ALISJENNIFER Room #: [facility] ELI Sanchez#: [id number] Admission: 11/12/18 Attend Phys: Maurice Blank, Discharge: Date of : 56 Date of Service: 11/12/18 1635 Report #: [id number] regurgitation. Estimated PAP 41 mmHg. There is mild pulmonary hypertension. Pulmonic Valve The pulmonary valve is normal in structure. There is no pulmonic valvular regurgitation. Great Vessels The aortic root is normal in size. IVC is normal in size and collapses >50% with inspiration. Pericardium There is no pericardial effusion. <Conclusion> The left ventricle is normal size. LVEF is 55-60%. The left ventricular diastolic function is normal. The right ventricle is normal size. The left atrium size is normal. The aortic valve is normal in structure. There is no mitral valve regurgitation noted. There is trace tricuspid regurgitation. Estimated PAP 41 mmHg. There is mild pulmonary hypertension. The aortic root is normal in size. There is no pericardial effusion. <ELECTRONICALLY SIGNED> By: Maurice Blank MD, FACC 11/12/18 1635 1635 1635 Maurice Blank MD, FACC /INF
== END ==
LOC: CV 11-05 08:04
DX: I10 Essential (primary) hypertension (principal); I25.10 Atherosclerotic heart disease of native coronary artery without angina pectoris; I27.20 Pulmonary hypertension, unspecified; I35.0 Nonrheumatic aortic (valve) stenosis; E11.9 Type 2 diabetes mellitus without complications; E78.5 Hyperlipidemia, unspecified; E78.00 Pure hypercholesterolemia, unspecified

== ENCOUNTER → 2019-01-27 | Outpatient (CLI) | payer OTHER ==
[2019-01-27 13:18] LABS: BE(vivo) 6.7 mmol/L (-2 to +3); HCO3 32.8 mmol/L (22.0-26.0); pH 7.394 (7.360-7.450)
[2019-01-27 13:19] LABS: PO2 53.6 mmHg (80.0-100.0)
== END ==
LOC: RAD 12:16
PROVIDERS: Family Medicine
DX: J44.9 Chronic obstructive pulmonary disease, unspecified (principal)

== ENCOUNTER 2019-09-11 10:40 | Inpatient (IN) | payer OTHER ==
[~2019-09-11] VITALS: Ht 157.5 cm; Wt 104.3 kg
[2019-09-11 10:43] VITALS: BP 120/40
[2019-09-11 11:14] LABS: BASOPHILS 0.7 % (0.0-2.0); EOSINOPHILS 0.9 % (0.0-3.0); HEMATOCRIT 32.3 % (37.0-47.0); HEMOGLOBIN 10.8 gm/dL (12.0-15.0); LYMPHOCYTES 9.1 % (24.0-44.0); MCH 27.1 pg (26.0-34.0); MCHC 33.4 g/dL (28.0-37.0); MCV 81.2 fL (80.0-100.0); MONOCYTES 10.2 % (1.0-8.0); PLATELET COUNT 278 thou/uL (150-400); POLYS 79.1 % (36.0-66.0); RBC 3.97 mil/uL (4.20-5.00); RDW 16.9 % (10.5-14.5); WBC 7.6 thou/uL (4.0-11.0)
[2019-09-11 11:25] LABS: CALCIUM 9.2 mg/dL (8.5-10.1); CREATININE 0.6 mg/dL (0.6-1.0); POTASSIUM 5.1 mmol/L (3.5-5.1)
[2019-09-11 11:32] LABS: ALBUMIN 3.4 g/dL (3.4-5.0); TOTAL BILIRUBIN 0.4 mg/dL (<0.1-1.0); TOTAL PROTEIN 6.9 g/dL (6.4-8.2)
[2019-09-11 13:04] VITALS: BP 120/55
[2019-09-11 13:27] VITALS: BP 108/51
[2019-09-11 14:20] VITALS: BP 118/72
[2019-09-11 15:10] LABS: ALBUMIN 3.2 g/dL (3.4-5.0); TOTAL PROTEIN 7.5 g/dL (6.4-8.2)
[2019-09-11 15:36] LABS: TSH 2.089 uIU/mL (0.358-3.740)
--- NOTE | 2019-09-11 16:33 | NUR ---
PATIENT ARRIVED FROM ER TO UNIT ROOM 448 AT 1430 PT ALERT XS4 IS PLEASANT AND COOPERATIVE WITH CARE. HAS IV TO LEFT HAND IV FLUIDS AND IV ABTS STARTED ORDERED. WOUND CARE PHOTOS TAKEN. PT HAD SPOUSE GO TO Q- TRIP FOR SNACKS AND FOOD IS NOT REALLY COMPLIANT WITH DM DIET. THIS NURSE GAVE HER BOX LUNCH AND DIET DRINK SHE STATES DOES NOT DO DIET. PT IS ON ROOM AIR WEARS O2 AND C-PAP AT NIGHT. ADMIT HX ADMIT SYSTEM AND ADMIT ED COMPLETED.
--- NOTE | 2019-09-11 16:46 | NUR ---
WOUND PICTURES TAKEN OF PT'S LEFT GREAT TOE MEASURES 1CM XS 1 1/2 CM.COVERED PER PATIENT REQUEST. WOUND IS DRY NO DRAINAGE. ALSO TOOK PICTURES OF RIGHT ELBOW AND RIGHT INNER HAND BOTH HAVE SUTURES THAT NEED TO COME OUT. PATIENT STATES DR MANNY LAY. DID SURGERY 2 WEEKS AGO FOR CARPAL TUNNEL RELEASE AND HAD HAND CYST REMOVED. WAS DONE AT [facility]. 13 SUTURES TO ELBOW AND 8 SUTURES TO HAND.
--- NOTE | 2019-09-11 18:11 | NUR ---
SPOKE WITH DR PRESTON GAVE ORDER FOR [facility] TO GET PATIENT C- PAP. CALLED [facility] WHO STATED THEY WOULD PUT ORDER IN AND BRING C- PAP TO ROOM.
--- NOTE | 2019-09-11 20:10 | NUR ---
DR CEDENO HERE TO SEE PATIENT WROTE NEW ORDERS AND WAS GOING TO TRY TO TAKE OUT SUTURES FROM RIGHT ELBOW AND HAND. SHE WAS MAD AT HIM AND TOLD HIM IF HE COULDNT NUMB IT TO GET THE F--- OUT OF THE ROOM. NOC NURSE STATED DOCTOR WAS VERY GENTLE WITH PATIENT. PATIENT STATES WILL NOT FOLLOW ANY ORDERS DR CEDENO ORDERED.
[2019-09-12 00:21] VITALS: BP 106/55
[2019-09-12 00:28] VITALS: BP 106/55
[2019-09-12 01:05] LABS: GLYCOHEMOGLOBIN (HGB A1C) 5.8 % (4.8-5.6)
--- NOTE | 2019-09-12 04:37 | NUR ---
ASSUMED PT CARE ON 09/11/19 AT 0725. I WENT IN THE ROOM TO [facility] THE DOCTOR TAKE OUT THE STITCHES. BEFORE THE DOCTOR STARTED THE PT GAVE HERSELF A SHOT IN THE STOMACH. I ASKED HER WHAT SHE WAS GIVING HERSELF AND SHE SAID IT WAS HER INSULIN FROM HOME. I TOLD THE DAY NURSE THAT THIS OCCURED AND SHE WAS CONFUSED. PT BECAME UPSET WHEN I TOLD HER THAT WE WOULD HAVE TO SEND THIS MEDICATION DOWN TO PHARMACY. THE DOCTOR BGAN TO REMOVE THE STITCHES. THE PT BECAME UPSET WHEN THE DOCTOR WAS REMOVING THE STITCHES ON HER RIGHT ARM. PT TOLD DOCTOR THAT HE WAS DONE AND THAT SHE DIDN'T WANT THE STITCHES OUT. PT CALLED FOR PAIN MEDICATION. AFTER GATHERING ALL OF THE MEDICINE THE PATIENT SAID SHE WAS OKAY WITH TAKING ALL OF THE MEDICATION. AFTER SCANNING THE MEDICINE THE PATIENT REFUSED ALL BUT THE ENOXAPRIN. I EXPLAINED TO THE PT THAT SHE SHOULD NEVER CUT ANYTHING OFF OF HER BODY WITH SCISSORS. SHE SAID THAT THE KIT AT THE STORE WAS TOO EXPENSIVE, AND THE TRIP TO THE DOCTOR WAS NOT AN OPTION BECAUSE OF THE COST. PT STATED THAT SHE WAS NOT GOING TO CARRY OUT ANY OF THE ORDERS UNLESS THE DOCTOR PUT THEM IN, NOT THE MAIL AGENT. THE PATIENT SAID THAT SHE WOULD WANT THE PAIN MED RIGHT BEFORE BED AND TO COME BACK LATER WITH IT. WHEN I CHECKED ON THE PATIENT LATER SHE SAID THAT SHE DID NOT FEEL THE NEED TO TAKE A MEDICATION THAT SHE DID NOT NEED. PT WAS ON THE PHONE FOR MOST OF THE SHIFT. PT REFUSED EVERYTHING I OFFERED. WILL CONTINUE TO MONITOR PT.
[2019-09-12 05:56] VITALS: BP 124/62
[2019-09-12 06:35] LABS: HEMATOCRIT 31.3 % (37.0-47.0); HEMOGLOBIN 10.1 gm/dL (12.0-15.0); MCH 26.8 pg (26.0-34.0); MCHC 32.3 g/dL (28.0-37.0); MCV 83.1 fL (80.0-100.0); RBC 3.77 mil/uL (4.20-5.00); RDW 17.6 % (10.5-14.5); WBC 6.3 thou/uL (4.0-11.0)
[2019-09-12 06:54] LABS: CALCIUM 8.8 mg/dL (8.5-10.1); CREATININE 0.8 mg/dL (0.6-1.0); MAGNESIUM 1.4 mg/dL (1.8-2.4); POTASSIUM 4.2 mmol/L (3.5-5.1)
[2019-09-12 09:30] VITALS: BP 126/61
--- NOTE | 2019-09-12 10:05 | NUR ---
ORDERS RECEIVED FOR EVAL AND TREAT. OBSERVED Pt AMBULATING IN HER ROOM ON HER OWN. SPOKE WITH Pt WHO STATES SHE FEELS BACK TO NORMAL AND IS HAVING NO DIFFICULTY WITH MOBILITY OR STRENGTH. Pt DECLINING FORMAL P.T. EVAL BUT APPEARS SAFE FOR HOME
--- NOTE | 2019-09-12 12:20 | NUR ---
PATIENT REFUSED OT EVALUATION REPORTING THAT SHE WAS FEELING BETTER, DIDN'T FEEL SHE NEEDED A FORMAL OT EVALUATION.
--- NOTE | 2019-09-12 14:39 | NUR ---
ASSESSMENT-PT LIVES AT HOME WITH HER WHO IS IN GOOD HEALTH AND ABLE TO ASSIST AT HOME. THEY HAVE 3 CHILDREN IN THE AREA TOO. PT WALKS ON HER OWN AND DOES HER OWN ADLS. SHE DOES HAVE A WALKER AT HOME BUT NOT CURRENTLY USING IT. PT HAS 02 SHE WEARS AT HS AND A C-PAP FROM [facility]. P RECENTLY HAD CARPAL TUNNEL SURGERY ON HER RIGHT HAND. PT HAS BEEN ON SERVICE WITH [facility] IN THE PAST. FOLLOWING TO ASSIST WITH DC PLANNING.
[2019-09-12] MEDS ORDERED: VICTOZA0.6 MG/0.1 SUBQ (15:41)
[2019-09-12] MEDS ORDERED: SPIRONOLACTONE25 MG PO (15:41)
[2019-09-12] MEDS ORDERED: FERROUS GLUCON324 M2 PO (15:41)
[2019-09-12] MEDS ORDERED: PROZAC 20 MG20 MG PO (15:42)
[2019-09-12] MEDS ORDERED: ATENOLOL 25 MG25 M1 PO (15:42)
[2019-09-12] MEDS ORDERED: NABUMETONE 500500 M1 PO (15:42)
[2019-09-12] MEDS ORDERED: METFORMIN HCL500 M3 PO (15:43)
--- NOTE | 2019-09-12 18:30 | NUR ---
PT ASSESSED AT START OF SHIFT. DR. RIVERA HERE EARLY TO SEE PT AND DISCUSS PLAN OF CARE. UP W/ STEADY GAIT. C/O PAIN IN LT ARM WHICH IS HELPED BY NORCO. NO PAIN IN GREAT TOE. WOUND DRRaffi IN AND SUTURES REMOVED FROM RT HAND AND ARM. LT GREAT TOE DSNG DONE BY WOUND NURSE. PT IN GOOD SPIRITS AND LOOKING FORWARD TO POSSIBLE DISCHARGE TOMORROW.
[2019-09-12 20:47] VITALS: BP 125/58
--- NOTE | 2019-09-13 04:20 | NUR ---
ASSUMED PT CARE ON 09/12/19 AT 1925. PT TAKES SCHEDULED MEDICAITON. PT HAS C/O OF PAIN IN HER WRIST AND HER ELBOW REGIION OF HER RIGHT ARM. PT CALLS OUT FOR PAIN MEDICATION. WHEN ATTEMPTED TO REEVALUATE PAIN LEVEL THE PT IS SLEEP IN THE ROOM. PT CALLS OUT FOR PAIN MEDICATION. PT IS LOOKING FORWARD TO D/C. WILL CONTINUE TO MONITOR.
[2019-09-13 05:53] LABS: HEMATOCRIT 30.1 % (37.0-47.0); HEMOGLOBIN 9.7 gm/dL (12.0-15.0); MCH 26.8 pg (26.0-34.0); MCHC 32.4 g/dL (28.0-37.0); MCV 82.7 fL (80.0-100.0); RBC 3.63 mil/uL (4.20-5.00); RDW 17.3 % (10.5-14.5); WBC 6.6 thou/uL (4.0-11.0)
[2019-09-13 05:56] VITALS: BP 119/51
[2019-09-13 06:11] LABS: CALCIUM 9.1 mg/dL (8.5-10.1); CREATININE 0.8 mg/dL (0.6-1.0); MAGNESIUM 1.5 mg/dL (1.8-2.4); POTASSIUM 4.4 mmol/L (3.5-5.1)
[2019-09-13 08:15] VITALS: BP 102/49
--- NOTE | 2019-09-13 08:39 | HC ---
[facility] [place] [address] CONSULTATION Name: JENNIFER SNELL Room #: 448-P ADM IN M.R.#: [id number] Admission: 09/11/19 Attend Phys: Marlo Reynoso MD Discharge: Date of : 56 Report #: [id number] THIS REPORT FOR: //name// CC: Marlo Reynoso DATE OF SERVICE: 09/12/2019 REASON FOR CONSULTATION: Hyponatremia. REASON FOR PRESENTATION: Lower extremity pain and swelling. HISTORY OF PRESENT ILLNESS: This is a 59-year-old with history of COPD, depression, myalgia. She carries a diagnosis of diabetes mellitus and presented because of a wound of the left foot. She was found to be hyponatremic. She is being admitted to further evaluate her wound. I had evaluated the patient back in 05/2018 for hyponatremia. She described her water intake as being excessive. She has no symptoms related to her hyponatremia including no headache. No seizure activities. No changes in the recent medications. She does have minimal bilateral lower extremity edema. Sodium with the normal saline has gone up to 132. PAST MEDICAL HISTORY: 1. Hypothyroidism. 2. Diabetes mellitus. 3. Hypertension. 4. Fibromyalgia. 5. Hyperlipidemia. 6. COPD. SOCIAL HISTORY: She uses vape. No drug or alcohol abuse. FAMILY HISTORY: Significant for hypertension. MEDICATIONS: Currently, the patient is maintained on the followin. Albuterol. 2. Carvedilol. 3. Lisinopril. 4. Clonazepam. 5. Gabapentin. 6. Furosemide. 7. Levothyroxine. REVIEW OF SYSTEMS: GENERAL: No fever or chills. CARDIOVASCULAR: No chest pain or palpitation. PULMONARY: No cough or hemoptysis. [facility] [address] [place] [address] CONSULTATION Name: JENNIFER SNELL Room #: 448-P [facility] IN M.R.#: [id number] Admission: 09/11/19 Attend Phys: Marlo Reynoso MD Discharge: Date of : 56 Report #: [id number] GASTROINTESTINAL: No nausea or vomiting. GENITOURINARY: No frequency or urgency. MUSCULOSKELETAL: As per the history of present illness. PHYSICAL EXAMINATION: VITAL SIGNS: Blood pressure is 124/60, pulse rate is 81, and temperature is 36.7. HEAD AND NECK: No jugular venous distention, no bruit, no thyromegaly. CHEST: Clear to auscultation bilaterally. CARDIOVASCULAR: Regular with no rub detected. ABDOMEN: Soft, nontender with no hepatosplenomegaly. LOWER EXTREMITIES: Trace edema. Sore present on her left toe with erythema extending all the way up to the tibial johnson. LABORATORY DATA: Reviewed. Sodium is now up to 132. Magnesium is 1.4. Foot x-ray with evidence of soft tissue swelling, but no evidence of fracture or osteomyelitis. IMPRESSION AND PLAN: 1. Hyponatremia due to excessive water intake. 2. Cellulitis. 3. Diabetes mellitus. 4. Chronic obstructive pulmonary disease. 5. Recurrent hyponatremia due to excessive water intake. This has rectified. 6. Discontinue IV fluid. 7. Add salt tablet. 8. Treatment of her cellulitis, other comorbid condition as per the primary team. <ELECTRONICALLY SIGNED> By: Emerald Gregorio MD 09/13/19 0839 0825 0904 Emerald Gregorio MD /nt
--- NOTE | 2019-09-13 09:17 | HC ---
[facility] [place] [address] CONSULTATION Name: JENNIFER SNELL Room #: 448-P ADM IN M.R.#: [id number] Admission: 09/11/19 Attend Phys: Marlo Reynoso MD Discharge: Date of : 56 Report #: [id number] THIS REPORT FOR: //name// CC: Marlo Reynoso DATE OF SERVICE: 09/11/2019 WOUND CARE CONSULTATION NOTE REASON FOR CONSULTATION: Diabetic ulcer of left great toe, recent right elbow surgery and right carpal tunnel surgery. HISTORY OF PRESENT ILLNESS: The patient is a 59-year-old woman with a history of diabetes who about 1 month ago tried to self-treat a callus of her left great toe and she cut it with the scissors. A wound developed on the great toe, which did not bother her until the past 24 hours. She is admitted to the Emergency Room with swelling and redness of the left great toe with the redness going to the lower legs. She denies fever, chills or constitutional symptoms. The patient about 2 weeks ago had right carpal tunnel surgery and right elbow surgery. She is supposed to have the sutures removed a week ago, but did not do that. PAST MEDICAL HISTORY: History of respiratory failure with hypoxia, COPD, diabetes mellitus type 2 with foot ulcer, history of hypomagnesemia, history of hyponatremia, morbid obesity, sleep apnea, bilateral hip and back arthritis, carpal tunnel of the right hand, history of Crohn's disease, history of depression and history of hypertension. ALLERGIES: KEFLEX, PENICILLIN AND TAPE. THE PATIENT ALSO CLAIMED TO SULFA ALLERGY. REVIEW OF SYSTEMS: Noncontributory. RADIOGRAPHIC TESTS: X-rays of the right foot shows no evidence of osteomyelitis or bony change. HOME MEDICATIONS: Include aspirin, carvedilol, Levothroid, Symbicort, clonazepam, albuterol, bupropion, Zestril, multiple vitamins, pravastatin, Protonix, hydrocodone, Zyprexa, Neurontin, Lantus and Novolin insulin, Lasix and Spiriva. PHYSICAL EXAMINATION: GENERAL: Shows chronically ill-appearing elderly woman. HEENT: Mucous membranes are moist. The patient is alert and conversant. NECK: Supple. LUNGS: Respirations unlabored. [address] [address] CONSULTATION Name: JENNIFER SNELL Room #: 448-P [facility] IN M.R.#: [id number] Admission: 09/11/19 Attend Phys: Marlo Reynoso MD Discharge: Date of : 56 Report #: [id number] ABDOMEN: Obese. EXTREMITIES: Upper extremities show a running nylon suture of the right olecranon elbow. This has been a couple of weeks, some redness. Suture was partially removed, this caused the patient discomfort. She did not wish the rest to be removed tonight. The patient also has interrupted nylon sutures in the median palmar aspect of the right wrist. Examination of the lower extremities shows intact dorsalis pedis pulse in the left foot. The patient has a large ulcer of the left great toe measuring approximately 1.5 cm x 1 cm x 0.4 cm deep. Ulcer is deep, cannot see any definite connective tissue. There is swelling and cellulitis of the toe. There is also a patch of redness on her left lower leg. IMPRESSION: 1. Morbid obesity. 2. Diabetic ulcer of the left great toe, rule out osteomyelitis. 3. Cellulitis of the left leg, likely secondary to the toe. 4. Recent surgery of right elbow and right carpal wrist with sutures intact, slight redness of the sutures. 5. Chronic obstructive pulmonary disease. 6. Hyponatremia. PLAN: The patient is receiving antibiotics, IV levofloxacin. She had received vancomycin. Wound culture ordered. Topical gentamicin, Xeroform ordered. Ordered lower extremity arterial Dopplers to assess arterial supply. Ordered an MRI to rule out osteomyelitis of the toe. Discussed toe and limb salvage effort with the patient. Discussed with her ____ would try and apply some topical analgesics to remove sutures tomorrow to the elbow and the right carpal wrist. Also, we will likely tomorrow consult Podiatry and Orthopedic. <ELECTRONICALLY SIGNED> By: Lakhwinder Russell MD 09/13/19 0917 [id number] Lakhwinder Russell MD /nt
[2019-09-13] MEDS ORDERED: LEVAQUIN 500 M500 M3 PO (11:04)
[2019-09-13 11:33] VITALS: BP 102/49
--- NOTE | 2019-09-13 12:18 | NUR ---
PT ALERT AND ORIENTED TIMES FOUR. VSS, 98%RA. PT DENIES PAIN/SOA. PT UP AB DEMETRICE WITH STEADY GAIT. PT TOLERATES MEDS AND MEALS. PLAN FOR DISCHARGE TODAY. AT BEDSIDE. PT PROGRESSING TOWRADS POC GOALS.
--- NOTE | 2019-09-13 19:28 | P ---
[facility] [place] [address] PROCEDURE REPORT Name: JENNIFER SNELL Room #: 448-P [facility] IN M.R.#: [id number] Admission: 09/11/19 Attend Phys: Marlo Reynoso MD Discharge: 09/13/19 Date of : 56 Report #: [id number] THIS REPORT FOR: //name// CC: Marlo Reynoso DATE OF SERVICE: 09/12/2019 PREPROCEDURE DIAGNOSIS: Diabetic neuropathic ulcer of the left great toe. POSTPROCEDURE DIAGNOSIS: Diabetic neuropathic ulcer of the left great toe. PROCEDURE PERFORMED: Sharp, full thickness surgical debridement of the skin and subcutaneous tissue of the right great toe. PREPROCEDURE MEASUREMENTS OF THE ULCER: 1.2 x 1.2 x 0.2 cm. POSTPROCEDURE MEASUREMENTS OF THE ULCER: 2.0 x 2.2 x 0.5 cm. DESCRIPTION OF PROCEDURE: After a verbal informed consent was obtained, a timeout was taken. The skin was then prepped and draped in the usual sterile fashion. The patient has significant peripheral neuropathy and felt no pain; therefore, no anesthetic was used. A #15 bladed scalpel was utilized then to perform sharp, full thickness debridement to include skin and subcutaneous tissue, debriding down to a healthy, clean, bleeding base. The patient tolerated the procedure well. Pain was 0 on a scale of 1 to 10. ESTIMATED BLOOD LOSS: Approximately 2 mL. COMPLICATIONS: None. <ELECTRONICALLY SIGNED> By: Saleem Sims MD 09/13/19 [id number] Saleem Sims MD /nt
== END 2019-09-13 15:36 | disposition home or self-care (01) | DRG 623 ==
LOC: ER 10:40 → EROBS 12:35 → 4S 12:35 → ENTRNSPT 09-13 14:17 → EDTRNSPTSTS 09-13 14:19 → 4S 09-13 15:36
PROVIDERS: Internal Medicine; Nurse Practitioner Family; ADMIT Family Medicine
PROC: 0JBR0ZZ Excision of Left Foot Subcutaneous Tissue and Fascia, Open Approach (ICD-10-PCS; principal; 2019-09-12)
DX: E11.621 Type 2 diabetes mellitus with foot ulcer (principal); E87.1 Hypo-osmolality and hyponatremia; K50.90 Crohn's disease, unspecified, without complications; Z68.41 Body mass index [BMI] 40.0-44.9, adult; L03.032 Cellulitis of left toe; E66.01 Morbid (severe) obesity due to excess calories; E78.5 Hyperlipidemia, unspecified; M16.0 Bilateral primary osteoarthritis of hip; E03.9 Hypothyroidism, unspecified; E83.42 Hypomagnesemia; F17.290 Nicotine dependence, other tobacco product, uncomplicated; J44.9 Chronic obstructive pulmonary disease, unspecified; E11.51 Type 2 diabetes mellitus with diabetic peripheral angiopathy without gangrene; F32.9 Major depressive disorder, single episode, unspecified; G47.33 Obstructive sleep apnea (adult) (pediatric); E11.42 Type 2 diabetes mellitus with diabetic polyneuropathy; M79.7 Fibromyalgia; R63.1 Polydipsia; I10 Essential (primary) hypertension; Z79.84 Long term (current) use of oral hypoglycemic drugs; Z79.82 Long term (current) use of aspirin; Z88.0 Allergy status to penicillin; Z88.1 Allergy status to other antibiotic agents; Z91.048 Other nonmedicinal substance allergy status; Z82.49 Family history of ischemic heart disease and other diseases of the circulatory system
CPT/HCPCS: 10195

== ENCOUNTER 2019-10-05 07:27 | Emergency (ER) | payer OTHER ==
[~2019-10-05] VITALS: Ht 157.5 cm; Wt 99.8 kg
[~2019-10-05 07:27] MED LIST changes: +ATENOLOL 25 MG25 M1 PO; +FERROUS GLUCON324 M2 PO; +LEVAQUIN 500 M500 M3 PO; +METFORMIN HCL500 M3 PO; +NABUMETONE 500500 M1 PO; +PROZAC 20 MG20 MG PO; +SPIRONOLACTONE25 MG PO
[2019-10-05 08:00] LABS: ABSOLUTE NEUTROPHILS 6.9 thou/uL (1.4-8.2); BASOPHILS 0.7 % (0.0-2.0); EOSINOPHILS 2.1 % (0.0-3.0); HEMATOCRIT 35.9 % (37.0-47.0); HEMOGLOBIN 11.7 gm/dL (12.0-15.0); LYMPHOCYTES 21.9 % (24.0-44.0); MCH 27.1 pg (26.0-34.0); MCHC 32.5 g/dL (28.0-37.0); MCV 83.5 fL (80.0-100.0); MONOCYTES 8.5 % (1.0-8.0); PLATELET COUNT 242 thou/uL (150-400); POLYS 66.8 % (36.0-66.0); RDW 16.4 % (10.5-14.5); WBC 10.3 thou/uL (4.0-11.0)
[2019-10-05 08:07] LABS: ANION GAP 9 mmol/L (7-16); BUN 10 mg/dL (7-18); CALCIUM 9.4 mg/dL (8.5-10.1); CHLORIDE 92 mmol/L (98-107); CO2 28 mmol/L (21-32); CREATININE 0.7 mg/dL (0.6-1.0); GLUCOSE 95 mg/dL (74-106); SODIUM 129 mmol/L (136-145)
[2019-10-05 08:15] LABS: TROPONIN-I <0.06 ng/mL (<0.06)
[2019-10-05] MEDS ORDERED: ZPAK PO (10:34)
[2019-10-05] MEDS ORDERED: PREDNISONE 20 M20 M1 PO (10:34)
[2019-10-05 10:36] VITALS: BP 115/55
--- NOTE | 2019-10-06 16:53 | EKG ---
[place] [address] [facility] [place] [address] ELECTROCARDIOGRAM REPORT Name: JENNIFER SNELL [id number] Admission: 10/05/19 Attend Phys: Discharge: 10/05/19 Date of : 56 Report #: [id number] THIS REPORT FOR: //name// 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: [place] : 1960 Requested By: Oswaldo Allen Order Number: [id number] MD: Raad Lake Measurements Intervals [place] Rate: 75 P: 69 MA: 161 QRS: 33 QRSD: 85 T: 30 QT: 386 QTc: 432 Interpretive Statements Sinus rhythm Poor R wave progression Compared to ECG 05/23/2018 11:24:38 No significant change was found Electronically Signed On 10-06-2019 16:53:19 AUTOMATIC PATTERN EDGER by Raad Lake [email or web address] <ELECTRONICALLY SIGNED> By: Raad Lake MD, [facility] 10/06/19 [id number] Raad Lake MD, FACC /EPI
== END 2019-10-05 10:45 | disposition home or self-care (01) ==
LOC: ER 07:27
PROVIDERS: Emergency Medicine
DX: J44.1 Chronic obstructive pulmonary disease with (acute) exacerbation (principal); E11.9 Type 2 diabetes mellitus without complications; I10 Essential (primary) hypertension; F32.9 Major depressive disorder, single episode, unspecified; M79.7 Fibromyalgia; F17.210 Nicotine dependence, cigarettes, uncomplicated; Z79.4 Long term (current) use of insulin; Z88.0 Allergy status to penicillin; Z88.1 Allergy status to other antibiotic agents

== ENCOUNTER → 2019-10-31 | Outpatient (CLI) | payer OTHER ==
[~2019-10-31] MED LIST changes: +PREDNISONE 20 M20 M1 PO; +ZPAK PO
== END ==
LOC: HYPER 09:12
DX: E11.621 Type 2 diabetes mellitus with foot ulcer (principal); L97.522 Non-pressure chronic ulcer of other part of left foot with fat layer exposed; E11.40 Type 2 diabetes mellitus with diabetic neuropathy, unspecified; E07.89 Other specified disorders of thyroid; E66.01 Morbid (severe) obesity due to excess calories; G47.30 Sleep apnea, unspecified; J44.9 Chronic obstructive pulmonary disease, unspecified; K50.90 Crohn's disease, unspecified, without complications; K21.9 Gastro-esophageal reflux disease without esophagitis; F32.9 Major depressive disorder, single episode, unspecified; F41.9 Anxiety disorder, unspecified; F17.200 Nicotine dependence, unspecified, uncomplicated; Z79.84 Long term (current) use of oral hypoglycemic drugs; Z79.82 Long term (current) use of aspirin

== ENCOUNTER → 2019-11-10 | Outpatient (CLI) | payer OTHER | LOC: HYPER 10:51 | DX: E11.621 Type 2 diabetes mellitus with foot ulcer (principal); L97.522 Non-pressure chronic ulcer of other part of left foot with fat layer exposed; E11.40 Type 2 diabetes mellitus with diabetic neuropathy, unspecified; L84 Corns and callosities; J44.9 Chronic obstructive pulmonary disease, unspecified; G47.30 Sleep apnea, unspecified; K50.90 Crohn's disease, unspecified, without complications; K21.9 Gastro-esophageal reflux disease without esophagitis; E66.01 Morbid (severe) obesity due to excess calories; F41.9 Anxiety disorder, unspecified; F32.9 Major depressive disorder, single episode, unspecified; Z68.39 Body mass index [BMI] 39.0-39.9, adult; Z79.82 Long term (current) use of aspirin; Z79.4 Long term (current) use of insulin ==

== ENCOUNTER → 2019-11-22 | Outpatient (CLI) | payer OTHER | LOC: HYPER 08:59 | DX: E11.621 Type 2 diabetes mellitus with foot ulcer (principal); L97.522 Non-pressure chronic ulcer of other part of left foot with fat layer exposed; S90.422D Blister (nonthermal), left great toe, subsequent encounter; L84 Corns and callosities; E11.40 Type 2 diabetes mellitus with diabetic neuropathy, unspecified; E66.01 Morbid (severe) obesity due to excess calories; E07.89 Other specified disorders of thyroid; J44.9 Chronic obstructive pulmonary disease, unspecified; G47.30 Sleep apnea, unspecified; K50.90 Crohn's disease, unspecified, without complications; K21.9 Gastro-esophageal reflux disease without esophagitis; F32.9 Major depressive disorder, single episode, unspecified; F41.9 Anxiety disorder, unspecified; F17.200 Nicotine dependence, unspecified, uncomplicated; Z79.84 Long term (current) use of oral hypoglycemic drugs; Z79.82 Long term (current) use of aspirin; X58.XXXD Exposure to other specified factors, subsequent encounter ==

== ENCOUNTER → 2019-12-20 | Outpatient (CLI) | payer OTHER | LOC: HYPER 08:11 | DX: E11.621 Type 2 diabetes mellitus with foot ulcer (principal); L97.522 Non-pressure chronic ulcer of other part of left foot with fat layer exposed; E11.40 Type 2 diabetes mellitus with diabetic neuropathy, unspecified; L84 Corns and callosities; J44.9 Chronic obstructive pulmonary disease, unspecified; K50.90 Crohn's disease, unspecified, without complications; K21.9 Gastro-esophageal reflux disease without esophagitis; G47.30 Sleep apnea, unspecified; E66.01 Morbid (severe) obesity due to excess calories; F41.9 Anxiety disorder, unspecified; F32.9 Major depressive disorder, single episode, unspecified; F17.200 Nicotine dependence, unspecified, uncomplicated; Z68.39 Body mass index [BMI] 39.0-39.9, adult; Z79.82 Long term (current) use of aspirin; Z79.4 Long term (current) use of insulin ==

== ENCOUNTER → 2020-02-02 | Outpatient (CLI) | payer OTHER | LOC: HYPER 09:37 | DX: E11.621 Type 2 diabetes mellitus with foot ulcer (principal); L97.522 Non-pressure chronic ulcer of other part of left foot with fat layer exposed; S91.112A Laceration without foreign body of left great toe without damage to nail, initial encounter; E11.40 Type 2 diabetes mellitus with diabetic neuropathy, unspecified; L84 Corns and callosities; J44.9 Chronic obstructive pulmonary disease, unspecified; G47.30 Sleep apnea, unspecified; K50.90 Crohn's disease, unspecified, without complications; K21.9 Gastro-esophageal reflux disease without esophagitis; E66.01 Morbid (severe) obesity due to excess calories; F32.9 Major depressive disorder, single episode, unspecified; F41.9 Anxiety disorder, unspecified; F17.200 Nicotine dependence, unspecified, uncomplicated; Z68.39 Body mass index [BMI] 39.0-39.9, adult; Z79.84 Long term (current) use of oral hypoglycemic drugs; Z79.82 Long term (current) use of aspirin; Z79.4 Long term (current) use of insulin; W26.8XXA Contact with other sharp object(s), not elsewhere classified, initial encounter; Y93.89 Activity, other specified; Y92.89 Other specified places as the place of occurrence of the external cause; Y99.8 Other external cause status ==

== ENCOUNTER → 2020-04-04 | Outpatient (CLI) | payer OTHER | LOC: HYPER 09:52 | DX: E11.621 Type 2 diabetes mellitus with foot ulcer (principal); L97.511 Non-pressure chronic ulcer of other part of right foot limited to breakdown of skin; L97.522 Non-pressure chronic ulcer of other part of left foot with fat layer exposed; S90.422D Blister (nonthermal), left great toe, subsequent encounter; L84 Corns and callosities; E11.40 Type 2 diabetes mellitus with diabetic neuropathy, unspecified; E66.01 Morbid (severe) obesity due to excess calories; E07.89 Other specified disorders of thyroid; G47.30 Sleep apnea, unspecified; J44.9 Chronic obstructive pulmonary disease, unspecified; K21.9 Gastro-esophageal reflux disease without esophagitis; K50.90 Crohn's disease, unspecified, without complications; F32.9 Major depressive disorder, single episode, unspecified; F17.200 Nicotine dependence, unspecified, uncomplicated; F41.9 Anxiety disorder, unspecified; Z68.39 Body mass index [BMI] 39.0-39.9, adult; Z79.82 Long term (current) use of aspirin; Z79.84 Long term (current) use of oral hypoglycemic drugs; X58.XXXD Exposure to other specified factors, subsequent encounter ==

== ENCOUNTER → 2020-05-28 | Outpatient (CLI) | payer OTHER | LOC: CAT 11:01 | PROVIDERS: ATTEND Internal Medicine Cardiovascular Disease | DX: Z13.6 Encounter for screening for cardiovascular disorders (principal); I25.10 Atherosclerotic heart disease of native coronary artery without angina pectoris; E78.00 Pure hypercholesterolemia, unspecified ==

== ENCOUNTER → 2020-06-11 | Outpatient (CLI) | payer OTHER | LOC: SJCVCIMAG 12:26 | PROVIDERS: ATTEND Internal Medicine Cardiovascular Disease | DX: I25.10 Atherosclerotic heart disease of native coronary artery without angina pectoris (principal); I10 Essential (primary) hypertension; E78.5 Hyperlipidemia, unspecified; E11.9 Type 2 diabetes mellitus without complications; J44.9 Chronic obstructive pulmonary disease, unspecified; F17.200 Nicotine dependence, unspecified, uncomplicated; Z79.82 Long term (current) use of aspirin; Z79.899 Other long term (current) drug therapy ==

== ENCOUNTER → 2020-08-09 | Outpatient (CLI) | payer OTHER ==
[~2020-08-09] MED LIST changes: +BUTALBIT-ACETA1 EACH PO; +COLESTID1 GM PO; +COMPAZINE10 MG PO; +FUROSEMIDE 40 M40 MG PO; +MELATONIN10 M3 PO; +NOVOLOG100 UNIT/M; +NOVOLOG100 UNIT/M SUBQ; +PROBIOTIC1 EAC7 PO; +TENORMIN25 MG PO
[2020-08-09 10:15] VITALS: BP 131/62
[2020-08-09 11:50] VITALS: BP 124/47
--- NOTE | 2020-08-09 14:36 | NUR ---
IN FOR VENOFER INFUSION FOR IRON DEFICIENCY ANEMIA. STATED FEELING VERY TIRED AND HOPES THIS WILL HELP. ADMISSION HISTORY AND ASSESSMENT COMPLETED. MEDICATION RECONCILED. IV PLACED IN RIGHT HAND AND INFUSED VENOFER OVER 30 MINUTES. TOLERATED WELL. POST BP GOOD. REMOVED IV AND DISMISSED IN STABLE CONDITION. TO RETURN NEXT THURSDAY FOR 2ND OF 5 TOTAL INFUSIONS.
== END ==
LOC: OPONC 08-08 08:51
PROVIDERS: ATTEND Family Medicine
DX: D50.8 Other iron deficiency anemias (principal)
CPT/HCPCS: 95000

== ENCOUNTER → 2020-08-14 | Outpatient (CLI) | payer OTHER ==
[2020-08-14 11:40] VITALS: BP 127/46
[2020-08-14 12:18] VITALS: BP 123/59
--- NOTE | 2020-08-14 12:40 | NUR ---
PT HERE FOR 2ND OF 5 VENOFER INFUSIONS FOR IRON DEFICIENCY ANEMIA. REPORTS TOLERATING THE FIRST WELL AND TOLERATED TODAY'S INFUSION WITHOUT INCIDENT, NO S/S REACTION. DISMISSED IN STABLE CONDITION. SCHEDULED TO RETURN AGAIN ON THURSDAY.
== END ==
LOC: OPONC 08:15
PROVIDERS: ATTEND Family Medicine
DX: D50.8 Other iron deficiency anemias (principal)
CPT/HCPCS: 95000

== ENCOUNTER → 2020-08-17 | Outpatient (CLI) | payer OTHER ==
[2020-08-17 10:55] VITALS: BP 119/53
[2020-08-17 12:25] VITALS: BP 110/46
--- NOTE | 2020-08-17 15:29 | NUR ---
IN FOR #3 OF 5 VENOFER INFUSIONS FOR IRON DEFICIENCY ANEMIA. STATED SHE FEELS A LITTLE STRONGER SINCE LAST INFUSION. TOLERATED INFUSION WITHOUT INCIDENT. POST BP GOOD. REMOVED IV AND DISMISSED IN STABLE CONDITION. TO RETURN NEXT THURSDAY FOR 4TH INFUSION.
== END ==
LOC: OPONC 08:35
PROVIDERS: ATTEND Family Medicine
DX: D50.9 Iron deficiency anemia, unspecified (principal)
CPT/HCPCS: 95000

== ENCOUNTER → 2020-08-21 | Outpatient (CLI) | payer OTHER ==
[2020-08-21 10:55] VITALS: BP 114/64
[2020-08-21 12:15] VITALS: BP 114/59
--- NOTE | 2020-08-21 13:47 | NUR ---
IN FOR #4 OF 5 VENOFER INFUSIONS. STATED FEELING STRONGER. DENIED SIDE EFFECTS EXCEPT FOR DARK AND FOUL ODOR TO URINE. IV PLACED IN RT HAND AND INFUSED VENOFER OVER 30 MINUTES. TOLERATED WELL. POST VITAL SIGNS GOOD. REMOVED IV AND DISMISSED IN STABLE CONDITION. TO RETURN ON THURSDAY FOR FINAL INFUSION.
== END ==
LOC: OPONC 10:46
PROVIDERS: ATTEND Family Medicine
DX: D50.9 Iron deficiency anemia, unspecified (principal)
CPT/HCPCS: 95000

== ENCOUNTER → 2020-08-23 | Outpatient (CLI) | payer OTHER ==
[2020-08-23 11:59] VITALS: BP 138/98
[2020-08-23 12:40] VITALS: BP 108/67
--- NOTE | 2020-08-23 16:19 | NUR ---
IN FOR FINAL VENOFER INFUSION. PATIENT STATED FEELING STRONGER AND FEELS LIKE THE IRON INFUSIONS HAVE HELPED HER. IV PLACED IN RT HAND AND INFUSED VENOFER OVER 30 MINUTES. TOLERATED WELL. POST VITAL SIGNS GOOD. REMOVED IV AND DISMISSED IN STABLE CONDITION.
== END ==
LOC: OPONC 09:36
PROVIDERS: ATTEND Family Medicine
DX: D50.8 Other iron deficiency anemias (principal)
CPT/HCPCS: 95000